=== PATIENT | female | born 1960 | race Caucasian/White ===

== ENCOUNTER 2025-10-11 12:12 | Emergency (ER) | payer MEDICARE, SELFPAY ==
[2025-10-11] VITALS (16 sets, daily range): BP systolic 119–138; BP diastolic 75–94; PULSE 71–96; RESP 16–18; TEMP 37; O2SAT 87–97; BMI 20.9
--- NOTE | 2025-10-11 12:11 | CT_ITS ---
FINAL REPORT TECHNIQUE: NASCET technique utilized for stenosis evaluation. CLINICAL HISTORY: possible stroke COMPARISON: None FINDINGS: The patient's head is placed asymmetrically into the gantry of the CT scanner, which somewhat limits overall image quality. RIGHT CAROTID: No significant stenosis is seen of the cervical common or internal carotid artery. LEFT CAROTID: No significant stenosis seen of the cervical common or internal carotid artery. VERTEBRALS: The vertebrals are patent. No significant stenosis is present. IMPRESSION: No significant arterial abnormality. Reviewed, Interpreted and Dictated by Christophe Peralta MD Transcribed by Merced Kelley Authenticated and [facility]
--- NOTE | 2025-10-11 12:11 | CT_ITS ---
FINAL REPORT TECHNIQUE: multiple axial CT images were performed from the foramen magnum to the vertex without enhancement. Multiplanar reconstructions in the sagittal and coronal planes were subsequently performed. This study was performed with techniques to keep radiation doses as low as reasonably achievable (ALARA). Individualized dose reduction techniques using automated exposure control or adjustment of mA and/or kV according to the patient's size were employed. CLINICAL HISTORY: possible stroke COMPARISON: None FINDINGS: The ventricles are moderately enlarged. There is moderate diffuse atrophy. There is periventricular white matter change likely related to small vessel disease. There is encephalomalacia in the inferior right parietal lobe, probably the sequela of a prior CVA. There is no evidence of hemorrhage. No masses are identified. No extra-axial fluid is seen. The sinuses are normal. IMPRESSION: Moderate atrophy and chronic changes without acute process. If clinically indicated, MR of the head with diffusion weighted images could be performed. Reviewed, Interpreted and Dictated by Christophe Peralta MD Transcribed by Merced Kelley Authenticated and [facility]
--- NOTE | 2025-10-11 12:11 | XR_ITS ---
FINAL REPORT CLINICAL HISTORY: Found down, strokelike symptoms FINDINGS: SINGLE VIEW CHEST The heart is normal in size. The mediastinum is unremarkable. The lungs are underinflated but clear. There is no pneumothorax. Thoracic scoliosis convex to the right measures 70 degrees. IMPRESSION: No acute process. Reviewed, Interpreted and Dictated by Christophe Peralta MD Transcribed by Alondra Mireles Authenticated and [facility]
--- NOTE | 2025-10-11 12:11 | CT_ITS ---
FINAL REPORT TECHNIQUE: thin section axial CT with and without IV contrast supplemented with multiplanar 3-D reconstruction of the head. This study was performed with techniques to keep radiation doses as low as reasonably achievable, (ALARA)individualized dose reduction techniques using automated exposure control or adjustment of mA and/or kV according to the patient's size were employed. CLINICAL HISTORY: possible stroke COMPARISON: None FINDINGS: The patient's head is asymmetric in the gantry. HEAD CT: The ventricles are moderately enlarged consistent with atrophy. There is no evidence of hemorrhage. There is evidence of encephalomalacia in the inferior right parietal lobe, probably the sequela of prior CVA. No masses are identified. No extra-axial fluid is seen. The sinuses are normal. CTA: The cranial circulation is unremarkable. There is no significant stenosis, aneurysm or occlusion. IMPRESSION: No acute intracranial vascular abnormality. Reviewed, Interpreted and Dictated by Christophe Peralta MD Transcribed by Merced Kelley Authenticated and [facility]
[2025-10-11 12:17] LABS: Hematocrit 42.9 % (37.0-47.0); Hemoglobin 15.2 g/dL (12.2-16.2); Immature Granulocytes % 0.2 %; Mean Corpuscular HGB Conc 35.4 g/dL (31.8-35.4); Mean Corpuscular Hemoglobin 35.5 pg (27.0-31.2); Mean Corpuscular Volume 100.2 fl (81-99); Nucleated Red Blood Cells % 0 %; Platelet Count 289 K/mm3 (142-424); Red Blood Count 4.28 M/mm3 (4.20-5.40); Red Cell Distribution Width-SD 45.5 fL; White Blood Count 8.9 K/mm3 (4.8-10.8)
[2025-10-11] MEDS: 0.9 % SODIUM CHLORIDE 50 ML VIAL IV (12:21)
[2025-10-11] MEDS: SODIUM CHLORIDE 0.9% 10ML SYR (RAD ONLY) 10 ML IV (12:21)
[2025-10-11] MEDS: IOPAMIDOL-370 (76%);100ML BOTTLE 80 ML IV (12:22)
[2025-10-11 12:31] LABS: Albumin Level 4.2 g/dl (3.5-5.0); Chloride 105 mmol/L (98-107); Potassium 4.2 mmoL/L (3.5-5.1); Sodium 140 mmol/L (136-145)
--- NOTE | 2025-10-11 12:31 | ECG_ITS ---
APPROVED REPORT Exam: Resting ECG HR:88 bpm ECG Measurements Heart Rate 88 AXES TX 137 P 24 QRSd 90 QRS 76 QT 372 T 36 QTc 418 Conclusion SINUS RHYTHM INDETERMINATE AXIS MODERATE ST DEPRESSION [0.05+ mV ST DEPRESSION] Significant artifact limits interpretation, unable to determine if ischemic changes are present Electronically signed by : ALIYAH MEJIA, 10/12/2025 06:44:03
[2025-10-11 12:33] LABS: Blood Urea Nitrogen 6 mg/dl (7-17); Creatinine,Serum 0.70 mg/dl (0.52-1.04); Estimated Glomerular Filt Rate 83 ml/min (>60); GFR (African American) 101 ML/MIN (>60)
[2025-10-11 12:34] LABS: Alanine Aminotransferase 22 U/L (12-78); Albumin/Globulin Ratio 1.4 (1.1-1.8); Alkaline Phosphatase 81 U/L (38-126); Anion Gap 14.2 mEq/L (5-15); Aspartate Amino Transferase 40 U/L (14-36); Bilirubin,Total 0.9 mg/dl (0.2-1.3); Calcium 9.0 mg/dl (8.4-10.2); Carbon Dioxide 25 mmol/L (22.0-30.0); Cholesterol 162 mg/dl (140-200); Creatine Kinase 32 U/L (30-135); Globulin 3.1 g/dL (1.3-3.2); Glucose 117 mg/dl (74-100); Magnesium 1.8 mg/dl (1.6-2.3); Phosphorous 2.5 mg/dl (2.5-4.5); Total Protein,Serum 7.3 g/dl (6.3-8.2); Triglycerides 72 mg/dl (30-150)
[2025-10-11 12:35] LABS: HDL Cholesterol 59 mg/dl (40-60)
[2025-10-11 12:52] LABS: Troponin I < 0.01 ng/ml (0.00-0.034)
[2025-10-11 12:53] LABS: Activated Partial Thrombo Time 22.3 seconds (22.8-30.6); INR 1.00 (0.9-1.1); Prothrombin Time 11.1 seconds (10.1-12.5)
--- NOTE | 2025-10-11 13:34 | ED_ITS ---
Discharge Plan Referrals Follow up/Referrals: Jace Hodge MD [Primary Care Provider, Family Practice] - See instructions Clinical Impressions Clinical Impression: Stroke-like symptoms, Dysarthria, Right arm weakness Print Language Print Language: Serbian Discharge ED Provider: Shantanu Hunt General Adult HPI General Chief complaint: Neuro Symptoms/Deficit Stated complaint: Possible stroke Time Seen by Provider: 10/11/25 12:13 Mode of Arrival: EMS Source of Information: Patient Description of Symptoms (Recalled from ER Triage Doc. by RN): PATIENT PRESENTS TO ED FOR STROKE ALERT WITH [facility] FROM HOME. PATIENT PRESENTS WITH RIGHT-SIDED FACIAL DROOP, RIGHT-SIDED WEAKNESS, AND SIGNIFICANT DYSARTHRIA. History of Present Illness HPI narrative: Laura Barreto is a 65-year-old female with no known past medical history who presents to the emergency department via EMS after being found down. Per EMS, police were called for a wellness check and found her in the home this morning on the floor. By the time EMS arrived, police had her sitting up in a chair. They noted right-sided weakness, right-sided facial droop, slurred speech. Fingerstick was 125 and route. Patient was stroke alerted on arrival. It is unknown how long patient was down or when her last known normal was. Related Data Allergies Allergy/AdvReac Type Severity Reaction Status Date / Time Unable to Assess Allergy Verified 10/11/25 14:16 [facility] Disclaimer: The information contained in this section may have been updated after the patient was seen, as this information can be updated by other users. Social History Smoking Status: Unknown if ever smoked alcohol intake: never current occupational status: other Travel in the last 8 weeks?: None ROS Obtained: Yes Systems reviewed as appropriate & no additional complaints except as documented Physical Exam General General appearance: alert and in no apparent distress Head Head exam: atraumatic Eye Eye exam: Present normal appearance, PERRL and EOMI ENT ENT exam: Present normal external ear exam Neck Neck exam: Present full ROM Chest Chest inspection: Present symmetric chest wall rise Respiratory Respiratory exam: Present normal lung sounds bilaterally; Absent respiratory distress, wheezes or stridor Cardiovascular Cardiovascular exam: Present regular rate and normal rhythm Abdominal Exam Abdominal exam: Present soft; Absent tenderness or guarding Extremities Exam Extremities exam: Present normal inspection Back Exam Back exam: Present normal inspection Neurological Exam Neurological exam: Present alert, oriented X3 and other (Right upper extremity is against gravity, right lower extremity with mild drift, left lower extremity with mild drift, speech therapist early intervention strength reduced on the right, intact speech therapist early intervention strength and no drift on the left upper extremity. Patient has dysarthria but appears to be oriented. Pupils equal round reactive t) Psychiatric Psychiatric exam: Present normal affect Skin Skin exam: Present warm and dry Medical Decision Making Medical Records Screening: Per USPSTF and CDC recommendations, given the prevalence of disease in our region, it is our hospital?s policy to screen for HIV and viral Hepatitis for all patients aged 18 and over and those with ongoing risk factors. Ryan Inquiry Pt receiving controlled substance: No Vital Signs: 10/11/25 12:28 10/11/25 12:30 10/11/25 12:35 Temperature 98.6 F Temperature Source Oral Pulse Rate 87 Pulse Rate [Right] 94 H Respiratory Rate 18 Blood Pressure 131/85 122/92 H Blood Pressure [Right Arm] 131/85 Blood Pressure Mean Blood Pressure Mean [Right Arm] 100 02 Sat by Pulse Oximetry 96 97 96 Oxygen Delivery Method Room Air Room Air 10/11/25 12:35 10/11/25 13:00 10/11/25 13:23 Temperature 98.6 F Temperature Source Pulse Rate 94 H 85 80 Pulse Rate [Right] Respiratory Rate 18 Blood Pressure 131/85 122/82 121/89 Blood Pressure [Right Arm] Blood Pressure Mean Blood Pressure Mean [Right Arm] 02 Sat by Pulse Oximetry 96 96 95 Oxygen Delivery Method Room Air Room Air 10/11/25 14:00 Temperature Temperature Source Pulse Rate Pulse Rate [Right] Respiratory Rate Blood Pressure 128/82 Blood Pressure [Right Arm] Blood Pressure Mean 93 Blood Pressure Mean [Right Arm] 02 Sat by Pulse Oximetry Oxygen Delivery Method Lab Data Lab Results 10/11/25 12:08: WBC 8.9, RBC 4.28, Hgb 15.2, Hct 42.9, MCV 100.2 H, MCH 35.5 H, MCHC 35.4, RDW 12.3, Plt Count 289, MPV 9.8, Neut % (Auto) 74.8, Lymph % (Auto) 13.1, [place] % (Auto) 8.4, Eos % (Auto) 2.2, Baso % (Auto) 1.3, Neut # (Auto) 6.7, Lymph # (Auto) 1.2, [place] # (Auto) 0.8, Eos # (Auto) 0.2, Baso # (Auto) 0.1, PT 11.1, INR 1.00, APTT 22.3 L, Sodium 140, Potassium 4.2, Chloride 105, Carbon Dioxide 25, Anion Gap 14.2, BUN 6 L, Creatinine 0.70, Estimated GFR 83, Est GFR ( Amer) 101, Glucose 117 H, Calcium 9.0, Phosphorus 2.5, Magnesium 1.8, Total Bilirubin 0.9, AST 40 H, ALT 22, Alkaline Phosphatase 81, Total Creatine Kinase 32, Troponin I < 0.01, Total Protein 7.3, Albumin 4.2, Globulin 3.1, Albumin/Globulin Ratio 1.4, Triglycerides 72, Cholesterol 162, LDL Cholesterol Direct 87.68 L, VLDL Cholesterol 14, HDL Cholesterol 59, Cholesterol/HDL Ratio 2.7, Plasma/Serum Alcohol < 10 10/11/25 12:08 10/11/25 12:08 Orders (Tests/Meds): ED MEDICATIONS Generic Name Dose Route Start Last Admin Trade Name Freq PRN Reason Stop Dose Admin Sodium Chloride 10 ml 10/11/25 12:11 Sodium Chloride 0.9% 10ml Flush Syringe IV 11/10/25 12:10 NEEDED PRN Maintain IV Site Discontinued Medications Generic Name Dose Route Start Last Admin Trade Name Freq PRN Reason Stop Dose Admin Iopamidol 80 ml 10/11/25 12:21 10/11/25 12:22 Iopamidol-370 (76%);100ml Bottle IV 10/11/25 12:22 80 ml ONCE ONE Administration Sodium Chloride 50 ml 10/11/25 12:21 10/11/25 12:21 0.9 % Sodium Chloride 50 Ml Vial IV 10/11/25 12:22 50 ml ONCE ONE Administration Sodium Chloride 10 ml 10/11/25 12:21 10/11/25 12:21 Sodium Chloride 0.9% 10ml Syr (Rad Only) IV 10/11/25 12:22 10 ml ONCE ONE Administration ORDERS Category Date Time Status CT angio head Stat Cat Scan 10/11/25 12:[address] angio neck Stat Cat Scan 10/11/25 12:[address] head/brain wo con Stat Cat Scan 10/11/25 12:11 Completed XR chest portable Stat Exams 10/11/25 12:11 Completed Activated Partial Thrombo Time Stat Lab 10/11/25 12:08 Completed CK [Creatine Kinase] Stat Lab 10/11/25 12:08 Completed Complete Blood Count Auto Diff Stat Lab 10/11/25 12:08 Completed Comprehensive Metabolic Panel Stat Lab 10/11/25 12:08 Completed Drug Screen,Urine Stat Lab 10/11/25 12:11 Ordered Ethyl Alcohol Stat Lab 10/11/25 12:08 Completed Lactic Acid Stat Lab 10/11/25 12:11 Ordered Lipid Panel Stat Lab 10/11/25 12:08 Completed Magnesium Stat Lab 10/11/25 12:08 Completed PHOS [Phosphorous] Stat Lab 10/11/25 12:08 Completed Prothrombin Time INR Stat Lab 10/11/25 12:08 Completed Troponin I Q3H Lab 10/11/25 15:15 Ordered Troponin I Q3H Lab 10/11/25 18:15 Ordered Troponin I Stat Lab 10/11/25 12:08 Completed UDS [Drug Screen,Urine] Stat Lab 10/11/25 12:31 Ordered Urinalysis and Microscopic Stat Lab 10/11/25 12:11 Ordered ECG Request Stat Y 10/11/25 12:11 Ordered ECG Data Tracing #1: I reviewed this ECG and interpreted as documented below: Significant underlying artifact but normal sinus rhythm. No ST elevation or depression. QTc normal at 418 Medical Decision Narrative: Laura Barreto is a 65-year-old female with no known past medical history who presents to the emergency department via EMS after being found down. Per EMS, police were called for a wellness check and found her in the home this morning on the floor. By the time EMS arrived, police had her sitting up in a chair. They noted right-sided weakness, right-sided facial droop, slurred speech. Fingerstick was 125 and route. Patient was stroke alerted on arrival. It is unknown how long patient was down or when her last known normal was. Patient was stroke alerted immediately upon arrival. Initial blood pressure 131/85, oxygen saturation 96% on room air. Afebrile. Breathing comfortably on room air and maintaining her airway appropriately. Physical exam, stated above, revealed an overall nontoxic-appearing female in no significant distress. She is alert and answering questions appropriately, she has significant dysarthria and it is difficult to understand her. She appears frustrated that she cannot speak normally. She does appear to have some mild right sided facial droop and right upper extremity is notably weak with speech therapist early intervention strength and extension. The remainder of her extremities are also slightly weak and have a slight drift to them she correctly identifies watch.. She is alert and oriented x 3. Pupils equal round reactive to light. Cranial nerves II through XII otherwise intact. Initial NIH of 10. Patient was taken immediately to CT scanner for CTAs of the head and neck as well as CT head without contrast. Additional hematologic labs and EKG were obtained. EKG without evidence of ischemia. See interpretation above. Chest x-ray was obtained and showed significant scoliosis but no focal consolidations, widening of the mediastinum, pneumothorax, or enlarged cardiac silhouette. See radiology report for details. CT head and CTA of the head neck were interpreted by me personally. No intracranial hemorrhage, mass or midline shift. No large vessel occlusion, significant stenosis or aneurysm. See final radiology report for details. With unknown last known normal, patient is outside of the TNK window and no indication for thrombectomy given no large vessel occlusion. Laboratory workup shows no leukocytosis, no anemia, coagulation studies with mildly elevated APTT of 22.3. Electrolytes within normal limits. No BRUCE. Phosphorus normal at 2.5, magnesium normal at 1.8. Mildly elevated AST of 40 but liver enzymes bilirubin otherwise within normal limits. Troponin less than 0.01. Alcohol level less than 10. Urinalysis and UDS are pending at this time. We did discuss patient's case with her boyfriend who lives in [place] who states that he last talked to her last night at approximately 9 PM and stated that she was normal and speaking well. He states that when he called her this morning, her speech was slurred and he could not understand her, so he called 911 and they did the well check at this time. He states that this is deafly not her normal. On reassessment at approximately 1400, patient's NIH has not improved. She does seem frustrated that she is not able to speak normally. I do feel that patient symptomatology is most consistent with stroke and will require MRI and neurology evaluation. I did discuss this with patient. She also states that she is not taking any medications at all. I then discussed the patient's case with Guillermina at [facility] stroke team who recommended giving 325 mg of aspirin as well as Plavix load of 300 mg and allow permissive hypertension. Patient then was accepted for transfer to [facility] by Dr. Adames. Will arrange for ground transport at this time. Critical Care Critical Care Time Critical Care Time: Yes Attestation: On 10/11/25, the high probability of a clinically significant, sudden or life threatening deterioration of the following system(s) required my full and direct attention, intervention and personal management. The time I documented below is in addition to time spent performing reported procedures but includes the following listed in this critical care notation. Total Time Total Critical Care Time: 35
--- NOTE | 2025-10-11 14:09 | PC.NURSE ---
Called [facility] for a patient transfer per Dr. Hunt he is on the phone with them now.
--- NOTE | 2025-10-11 14:09 | PC.NURSE ---
I requested radiology power share to [facility] and make a disc of her images.
[2025-10-11 14:18] LABS: Microscopic, Urine URINE MICROSCOPIC (MICROSCOPIC)
[2025-10-11] MEDS: ASPIRIN 325MG TABLET 325 MG PO (14:20)
[2025-10-11 14:27] LABS: Bilirubin,Urine Negative (Negative); Color,Urine YELLOW (Yellow); Glucose,Urine (UA) Negative (Negative); Ketones,Urine Negative (Negative); Leukocyte Esterase,Urine Negative (Negative); PH,Urine 5.5 (5.0-8.5); Protein,Urine Negative (Negative); Specific Gravity, Urine 1.010 (1.005-1.030); Urobilinogen,Urine 0.2 EU/dl (0.2)
--- NOTE | 2025-10-11 14:28 | PC.NURSE ---
patient unable to tolerate oral medications, became choked on aspirin. pt unable to take plavix, aware.
--- NOTE | 2025-10-11 14:30 | PC.NURSE ---
while attempting to give pt aspirin pt began to choke while drinking water after attempting to take the pill. MD notified. plvix not given due to this
[2025-10-11 14:37] LABS: Amphetamine/Metha Screen,Urine Negative ng/ml (<1000)
[2025-10-11 14:38] LABS: Barbiturates Screen,Urine Negative ng/ml (<200)
[2025-10-11 14:39] LABS: Benzodiazepines Screen,Urine Negative ng/ml (<200)
[2025-10-11 14:41] LABS: Methadone Screen,Urine Negative ng/ml (<300); Opiate Screen,Urine Negative ng/ml (<300)
[2025-10-11 14:42] LABS: Phencyclidine Screen,Urine Negative ng/ml (<25)
[2025-10-11 14:50] LABS: RBC,Urine Occasional #/hpf (0-3)
[2025-10-11 14:51] LABS: Bacteria,Urine 3+ /lpf; Squamous Epithelial Cell,Urine Occasional #/hpf (0-5)
--- NOTE | 2025-10-11 15:26 | PC.NURSE ---
EMS was called and notified about the patient needing transport to [facility].
[2025-10-11 16:09] LABS: Troponin I < 0.01 ng/ml (0.00-0.034)
[2025-10-11 18:42] LABS: Troponin I < 0.01 ng/ml (0.00-0.034)
--- NOTE | 2025-10-14 08:40 | PC.NURSE ---
Urine culture results faxed to [facility] at [phone]
== END 2025-10-11 18:20 | disposition other institution (70) ==
PROVIDERS: Emergency Provider Student in an Organized Health Care Education/Training Program; PCP Family Medicine
DX: R29.818 Other symptoms and signs involving the nervous system (principal); R47.1 Dysarthria and anarthria; R29.810 Facial weakness; R29.898 Other symptoms and signs involving the musculoskeletal system; N39.0 Urinary tract infection, site not specified; B96.1 Klebsiella pneumoniae [K. pneumoniae] as the cause of diseases classified elsewhere
CPT/HCPCS: 70450; 70496; 70498; 71045; 80053; 80061; 80307; 80320; 81001; 82550; 83605; 83735; 84100; 84484; 85025; 85610; 85730; 87086; 87088; 87186; 93005; 96365; 99285; J0696; Q9967